=== PATIENT | male | born 1995 | race Caucasian/White ===

== ENCOUNTER 2016-07-13 14:46 | Emergency (ER) | payer OTHER ==
[2016-07-13 14:50] VITALS: BP 130/67; PULSE 90; RESP 18; O2SAT 97
--- NOTE | 2016-07-13 15:15 | EDPHY ---
H & P Time Seen by Provider: 07/13/16 14:58 HPI/ROS: CHIEF COMPLAINT: Chin laceration HISTORY OF PRESENT ILLNESS: 21-year-old male complaining of accidental chin laceration he was skiing today, need himself no chin. No loss of consciousness. No dental malalignment. No Mandible pain. No headache. No neck pain. No peripheral paresthesia, weakness, numbness. No intraoral trauma. REVIEW OF SYSTEMS: A ten point review of systems was performed and is negative with the exception of the items mentioned in the HPI PAST MEDICAL/SURGICAL HISTORY: no anticoagulant use, no relevant medical/ surgical history SOCIAL HISTORY: denies alcohol use at time of incident PHYSICAL EXAM 1) GENERAL: Well-developed, well-nourished, alert and oriented. Appears to be in no acute distress. Answering questions appropriately. 2) HEAD: Normocephalic, atraumatic 3) HEENT: Pupils equal, round, reactive to light bilaterally. Negative Horners. Nasopharynx, oropharynx, clear. No deformity or angulation of nose. No septal hematoma. No rhinorrhea. No oral trauma. Ears bilaterally with normal tympanic membranes. No hemotympanum. No fluid or blood in the external auditory canal. No raccoon eyes. No Alvarez sign. Teeth are normally aligned with no gross malocclusion, TMJ bilaterally nontender, facial bones nontender including the zygomatic arch, maxilla mandible. 3.5 cm transverse inferior chin laceration 4) NECK: No cervical collar is on. Posterior cervical spine is nontender, no stepoff, no effusion. Full range of motion which does not elicit any midline cervical spine pain, no posterior midline tenderness, no step-off. Smoking Status: Never smoked Constitutional: Initial Vital Signs Temperature (C) 36.7 C 07/13/16 14:48 Heart Rate 90 07/13/16 14:48 Respiratory Rate 18 07/13/16 14:48 Blood Pressure 130/67 H 07/13/16 14:48 O2 Sat (%) 97 07/13/16 14:48 O2 Delivery Mode Room Air Allergies/Adverse Reactions: Sulfa (Sulfonamide Antibiotics) Allergy (Verified 07/13/16 14:58) Home Medications: Medication Instructions Recorded NK [No Known Home Meds] 07/13/16 MDM/Departure - MDM Procedures: Procedure: Laceration repair. I explained the indications, risks and benefits for both laceration repair and anesthetic administration. Verbal consent was obtained from the patient . The laceration on the chin was anesthetized using 0.5% bupivicaine with epinephrine . After anesthetic administered the patient was observed for a period of time and had no apparent adverse effects. The wound was cleaned, prepped, draped in normal sterile fashion and explored to its base. No foreign body seen, no foreign bodies palpated. There were no deep structures involved. The wound was repaired with 11 simple interrupted 6-0 prolene suture . The wound repair was complex. The procedure was performed by myself. Patient has been informed that scarring will occur, although efforts have been made to minimize this. - Depart Disposition: Home, Routine, Self-Care Clinical Impression: Chin laceration Qualifiers: Encounter type: initial encounter Qualified Code(s): S01.81XA - Laceration without foreign body of other part of head, initial encounter Condition: Good Instructions: Care For Your Stitches (ED), Laceration (ED) Additional Instructions: ALTHOUGH THERE IS NO EVIDENCE OF SERIOUS HEAD INJURY AT THIS TIME, DELAYED SIGNS CAN APPEAR 24 TO 48 HOURS AFTER INJURY. WE RECOMMEND THAT YOU DESIGNATE A FRIEND OR FAMILY MEMBER TO OBSERVE YOU OVER THE NEXT FEW DAYS TO ENSURE THAT YOUR CONDITION IS PROGRESSING NORMALLY. PLEASE RETURN TO THE EMERGENCY DEPARTMENT (ED) IMMEDIATELY IF YOU HAVE INCREASED HEADACHE, PERSISTENT HEADACHE , VOMITING, WEAKNESS, CONFUSION OR VISUAL PROBLEMS. WE RECOMMEND THAT YOU DO NOT RESUME CONTACT SPORTS OR ACTIVITIES THAT TAKE COORDINATION OR BALANCE SUCH SKIING OR RIDING A BICYCLE UNTIL CLEARED TO DO SO BY YOUR DOCTOR OR BY A NEUROLOGIST. Referrals: Return, to the ER in 5 days for suture removal [Other] - 07/18/16
[2016-07-13 16:11] VITALS: TEMP 97.8
== END 2016-07-18 10:44 | disposition home or self-care (01) ==
PROC: 0HQ1XZZ Repair Face Skin, External Approach (ICD-10-PCS; principal; 2016-07-13)
DX: S01.81XA Laceration without foreign body of other part of head, initial encounter (principal); X58.XXXA Exposure to other specified factors, initial encounter; Y99.8 Other external cause status; Y93.23 Activity, snow (alpine) (downhill) skiing, snowboarding, sledding, tobogganing and snow tubing

== ENCOUNTER 2016-09-01 12:12 | Emergency (ER) | payer OTHER ==
[2016-09-01 12:21] VITALS: TEMP 97.5
--- NOTE | 2016-09-01 12:27 | EDPHY ---
H & P Stated Complaint: SKIING TWISTED R KNEE Time Seen by Provider: 09/01/16 12:23 HPI/ROS: CHIEF COMPLAINT: Right knee pain HISTORY OF PRESENT ILLNESS: 21-year-old male arrives via private vehicle complaining of acute right knee pain after he was skiing earlier today, twisted his right knee. He is complaining of right medial knee pain reproducible with palpation, range of motion. No gross instability. PHYSICAL EXAM (Prior to examination, patient consented to physical exam, hands were washed and my usual and customary physical exam procedures followed) 1) GENERAL: Well-developed, well-nourished, alert and oriented. Appears to be in no acute distress. 2) HEAD: Normocephalic 3) HEENT: Pupils equal, round, reactive to light bilaterally. 4) LUNGS: Breathing comfortably. 5) MUSCULOSKELETAL: Exam of the right knee shows tenderness to palpation medial aspect . Compartments are soft. 6) SKIN: intact 7) VASCULAR: DP,PT pulses and cap refill present and brisk distally DIFFERENTIAL DIAGNOSIS: in no particular order including but not limited to fracture, sprain, compartment syndrome, septic arthritis, DVT Procedure: Crutches indications for crutch use discussed with patient. Patient fitted for crutches by ER staff. Observed ambulating with crutches. I think the patient has the capacity to safely use crutches. Usual and customary crutch walking precautions provided Procedure: Splint A knee immobilizer splint was applied by ER dairy technician. After application of the splint I returned and re-examined the patient. The splint was adequately immobilizing the joint and distal to the splint the patient's circulation and sensation were intact. Patient shows no signs of compartment syndrome. Was given orthopedic precautions. MEDICAL DECISION MAKING Serial evaluations performed on patient. I discussed the limitations of x-ray in diagnosis of knee pain and injury. At this time I do not think that emergent MRI is currently indicated. However, I have recommended follow-up with Orthopedic surgery and provided this referral information. Informed the patient that outpatient MRI may be indicated. Doubt septic arthritis. Doubt compartment syndrome. Doubt DVT. - Personal History Current Tetanus/Diphtheria Vaccine: Yes Tetanus Vaccine Date: 2010 - Medical/Surgical History Hx Asthma: No Hx Chronic Respiratory Disease: No Hx Diabetes: No Hx Cardiac Disease: No Hx Renal Disease: No Hx Cirrhosis: No Hx Alcoholism: No Hx HIV/AIDS: No Hx Splenectomy or Spleen Trauma: No Other PMH: MULTIPLE ORTHO INJURY - Social History Smoking Status: Never smoked Constitutional: Initial Vital Signs Temperature (C) 36.4 C 09/01/16 12:17 Heart Rate 92 09/01/16 12:17 Respiratory Rate 17 09/01/16 12:17 Blood Pressure 128/60 H 09/01/16 12:17 O2 Sat (%) 97 09/01/16 12:17 O2 Delivery Mode Room Air Allergies/Adverse Reactions: Sulfa (Sulfonamide Antibiotics) Allergy (Verified 09/01/16 12:17) Home Medications: Medication Instructions Recorded Ibuprofen [Motrin (*)] 600 mg PO Q6 #15 tab 09/01/16 Medical Decision Making - Diagnostics Imaging: Imaging Impressions Knee X-Ray 09/01/16 12:24 Impression: Nothing acute identified. Images reviewed by myself Departure - Departure Disposition: Home, Routine, Self-Care Clinical Impression: Right medial knee pain Condition: Good Instructions: Knee Sprain (ED) Additional Instructions: Return to the ER immediately if you experience discoloration, have worsening pain, numbness, tingling, or any other symptoms that concern you. If you received x-rays in the emergency department today, be advised, that ligamentous , tendon, muscular, and other non-bony injury cannot be fully ruled out. Try to keep your affected extremity elevated above the level of your chest, and keep cold packs on the affected area, for the next 48 hours. Referrals: Christiano Berry MD [Medical Doctor] - 5-7 days, call for appt. Prescriptions: Ibuprofen [Motrin (*)] 600 mg PO Q6 #15 tab
[2016-09-01 13:24] VITALS: BP 148/79; PULSE 69; RESP 18; O2SAT 96
== END 2016-09-01 13:24 | disposition home or self-care (01) ==
DX: S89.91XA Unspecified injury of right lower leg, initial encounter (principal); X58.XXXA Exposure to other specified factors, initial encounter; Y93.23 Activity, snow (alpine) (downhill) skiing, snowboarding, sledding, tobogganing and snow tubing
CPT/HCPCS: L1830